=== PATIENT | female | born 1940 | race African-American/Black ===

== ENCOUNTER 2023-03-27 09:17 | Outpatient (REF) | payer OTHER, SELFPAY | END 2023-03-27 09:18 | disposition home or self-care (01) | LOC: HO.HOSX 09:17 | PROVIDERS: Visit Provider Orthopaedic Surgery | DX: Z13.89 Encounter for screening for other disorder (principal) ==

== ENCOUNTER 2023-04-03 09:54 | Outpatient (REF) | payer OTHER, SELFPAY ==
--- NOTE | ~2023-04-03 | XR_ITS ---
EXAMINATION: XR BILATERAL KNEES CLINICAL INFORMATION: Bilateral knee pain. COMPARISON: None available. TECHNIQUE: 3 views of the right knee. 3 views of the left knee. FINDINGS:
== END 2023-04-03 09:55 | disposition home or self-care (01) ==
LOC: HO.HOSX 09:54
PROVIDERS: Visit Provider Orthopaedic Surgery
DX: M25.562 Pain in left knee (principal); M25.561 Pain in right knee; M54.50 Low back pain, unspecified; M79.604 Pain in right leg; M79.605 Pain in left leg; Z96.651 Presence of right artificial knee joint
CPT/HCPCS: 73562; 99212

== ENCOUNTER 2023-04-03 12:16 | Outpatient (AMB) | payer OTHER, MEDICAID, SELFPAY ==
--- NOTE | 2023-04-03 12:26 | MHC.OFFVIS ---
Intake Intake Visit Reasons: [employer]- B/l Knee pain Intake Note: This is 82 year old female who has had a right total knee by Dr. Phelan in 2010. She reports intermittent discomfort in both of her knees. She denies any fevers or chills. She has taken tramadol in the past which gives her fairly good relief. Patient also reports progressively worsening low back pain which radiates down both of her legs, right greater than left. She has been to physical therapy in the past which gave her no relief of her back pain. The patient states that at times her right leg will give out because of the weakness. She has tried Tylenol and anti-inflammatory medicines which gave her minimal relief. Allergies No Known Allergies Allergy (Verified 04/03/23 12:30) Medication List - Last Reconciled 04/03/23 by Kenya Diaz, CEHTAN albuterol sulfate 90 mcg/actuation 1 inh inhalation QID amitriptyline 50 mg PO DAILY apixaban (Eliquis) 2.5 mg PO BID baclofen 10 mg PO DAILY ferrous sulfate 325 mg PO Q OTHER DAY furosemide 20 mg PO DAILY gabapentin 300 mg PO DAILY metoprolol tartrate 50 mg PO DAILY omeprazole 20 mg PO DAILY pravastatin 40 mg PO DAILY [facility] Surgical History (Updated 04/03/23 @ 13:15 by Kenya Diaz RN) History of total right knee replacement Physical Exam Const Other: Well-nourished well-developed very friendly female awake alert and oriented x3 in no acute distress Back/Spine/Pelvis Other: Low back examination shows right-sided paraspinal muscle tenderness, pain with range of motion, positive straight leg raise test on the right at 70 degrees, 4/5 strength with testing of her right hip flexors and knee extensors when compared to 5/5 strength on her left side Extrem Other: Right knee examination shows that the surgical incision is well healed, no erythema, full active extension and flexion to 120 degrees with minimal discomfort, her patella tracks well, no instability Left knee examination shows palpable crepitus with range of motion, pain with range of motion, no instability Results Reviewed Results Reviewed: X-rays of the patient's right knee show a total knee arthroplasty in good position with no signs of loosening, no acute bony abnormalities X-rays of the patient's left knee show moderate diffuse joint space narrowing, no acute bony abnormalities Assessment & Plan Assessment & Plan (1) Right knee pain: Code(s): M25.561 - Pain in right knee (2) Left knee pain: Code(s): M25.562 - Pain in left knee (3) Low back pain radiating to both legs: Code(s): M54.50 - Low back pain, unspecified; M79.604 - Pain in right leg; M79.605 - Pain in left leg Plan Ms. Reza presents with progressively worsening low back pain which radiates down both of her legs as well as associated right leg weakness possibly due to lumbar stenosis or a disc herniation. Thus, I will send the patient for an MRI of her lumbar spine for further evaluation. I will contact her by phone with the results once the MRI is completed. She will call me prior to that time should her symptoms worsen in any way. I did refill her prescription for tramadol. Feel free to call me at any time should questions regarding her orthopedic management arise. I spent 22 minutes in reviewing the patient's records and imaging studies, seeing the patient and documenting in the medical record. Orders: Orders MR lumbar spine wo con 04/03/23 M54.50 - Low back pain, unspecified, M79.604 - Pain in right leg, M79.605 - Pain in left leg Medications: New tramadol 50 mg PO Q8H PRN 60 tabs 0RF pain Coding Level of Care Code Est Pt Level 2 (90435) Diagnoses Right knee pain M25.561 Left knee pain M25.562 Low back pain radiating to both legs M54.50; M79.604; M79.605
== END 2023-04-03 13:18 | disposition home or self-care (01) ==
PROVIDERS: PCP Internal Medicine; Visit Provider Orthopaedic Surgery
DX: M25.561 Pain in right knee (principal); M25.562 Pain in left knee; M54.50 Low back pain, unspecified; M79.604 Pain in right leg; M79.605 Pain in left leg
CPT/HCPCS: 99213

== ENCOUNTER 2023-05-03 13:32 | Outpatient (AMB) | payer OTHER, SELFPAY ==
--- NOTE | 2023-05-03 13:34 | MHC.OFFVIS ---
Intake Vital Signs 05/03/23 13:38 Height 5 ft 9 in Weight 250 lb BMI 36.9 Intake Visit Reasons: ov- mri review Intake Note: Ani is a 82 year old female who reports for and MRI review of her lumbar spine. Patient reports progressively worsening low back pain which radiates down both of her legs, right greater than left. The patient states that she did undergo low back surgery by Dr. Darnell Meng in 2010. She got fairly good relief from that surgery initially. Over the last few years her symptoms have gotten worse. She has been to physical therapy in the past which gave her no relief of her back pain. The patient states that at times her right leg will give out because of the weakness. She has tried Tylenol and anti-inflammatory medicines which gave her minimal relief. Allergies No Known Allergies Allergy (Verified 05/03/23 13:37) [facility] Surgical History History of total right knee replacement Physical Exam Vital Signs: BMI result Body Mass Index 36.9 Const Other: Well-nourished well-developed very friendly female awake alert and oriented x3 in no acute distress Back/Spine/Pelvis Other: Low back examination shows pain with range of motion, bilateral paraspinal muscle tenderness, positive straight leg raise test on the left at 70 degrees Results Reviewed Results Reviewed: MRI report of the patient's lumbar spine shows diffuse moderate to severe stenosis, no acute bony abnormalities Assessment & Plan Assessment & Plan (1) Low back pain radiating to both legs: Code(s): M54.50 - Low back pain, unspecified; M79.604 - Pain in right leg; M79.605 - Pain in left leg Plan Ms. Reza presents with low back pain which radiates into both of her legs due to lumbar stenosis. Thus, I will refer her to the neurosurgery department here at [facility]. She will follow-up as instructed. She will contact me prior to that appointment should her symptoms worsen in any way. Feel free to call me at any time should questions regarding her orthopedic management arise. I spent 20 minutes in reviewing the patient's records and imaging studies, seeing the patient and documenting in the medical record. Orders: Referrals Neurosurgery Referral M54.50 - Low back pain, unspecified, M79.604 - Pain in right leg, M79.605 - Pain in left leg Medications: Refilled tramadol 50 mg PO Q8H PRN 60 tabs 0RF pain Coding Level of Care Code Est Pt Level 2 (19403) Diagnoses Low back pain radiating to both legs M54.50; M79.604; M79.605
[2023-05-03 13:38] VITALS: BMI 36.9
== END 2023-05-03 14:21 | disposition home or self-care (01) ==
PROVIDERS: PCP Internal Medicine; Visit Provider Orthopaedic Surgery
DX: M48.061 Spinal stenosis, lumbar region without neurogenic claudication (principal); M79.604 Pain in right leg; M79.605 Pain in left leg
CPT/HCPCS: 99213

== ENCOUNTER → 2023-05-03 13:32 | Outpatient (BNVA) | payer OTHER, SELFPAY | PROVIDERS: PCP Internal Medicine; Visit Provider Orthopaedic Surgery | DX: M48.061 Spinal stenosis, lumbar region without neurogenic claudication (principal) | CPT/HCPCS: 99212 ==

== ENCOUNTER 2023-05-18 12:33 | Outpatient (AMB) | payer OTHER, SELFPAY ==
--- NOTE | 2023-05-18 13:05 | A.SPINEOV_ITS ---
Intake Intake Visit Reasons: leg and back pain Intake Note: Ms. Reza is here today c/o low back and leg pain. MRI done @ [facility]/brought disc. 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 Phelan, Thank you for referring Ani to our office today. She is a pleasant 82-year-old female who comes in today with a chief complaint of low grade back pain and difficulty walking. She reports that she began having low back pain and difficulty walking roughly 50 years ago, and is unable to identify any specific inciting incident. She reports relief of symptoms with flexing forward and sitting, and states that walking exacerbates her symptoms. She states that she had a previous lumbar spine surgery by Dr. Meng at [facility] in 2010, which provided minimal relief. Radiology report states that this surgery was a right-sided L3-4 laminectomy. She reports she has tried several interventions over the years including going to physical therapy multiple times, completing a series of cortisone injections, and having other issues addressed such as a right-sided knee replacement. She states that if she needs to walk long distances she needs to stop and rest several times in order to continue. She states she is still able to complete her grocery shopping but needs to utilize the shopping cart to get around. She currently takes gabapentin & baclofen for symptom management. 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 Hypertension, hyperlip idemia, right knee replacement, asthma, osteoarthritis. Social hx: Patient does not smoke, reports no substance use. Medications: Amitriptyline, gabapentin, pravastatin, metoprolol, baclofen, omepr azole, albuterol, Eliquis, furosemide. Allergies: NKDA. Physical exam: The patient has 5/5 strength in her upper and lower extremities. She reports intermittent sensational deficits in her posterior thighs. The rest of her sensation is grossly intact. Her patellar reflexes are 1+ hypoactive. The rest of her reflexes are 2+ intact. (-) Johnson's, (-) clonus. Imaging review: MRI completed at [facility] shows diffuse spondylosis of the lumbar spine. There is evidence of a prior surgery which the MRI report states was a right-sided hemilaminectomy at L3-4. There is severe bilateral foraminal stenosis noted at L2-3, worse on the right, and moderate bilateral foraminal stenosis at L3-4. Impression: Ani is a pleasant 82-year-old female who comes in today with a chief complaint of low back pain accompanied by difficulty walking. She states that the worst symptom that she has at this time is her inability to walk. She needs to stop several times and sit if she needs to walk long distances (example: from her car into the office). Her history and physical are classic for lumbar stenosis with neurogenic claudication. Her imaging also supports this. We spent some time in the office today discussing the possibility of a lumbar decompression to address her neurogenic claudication. She seems agreeable to this. I informed her that I will need to review her case with Dr. Blanton and see if there is a surgical intervention that he is willing to offer her to resolve her symptoms. We discussed the possibility of addressing both the L2-3 and L3-4 levels. Thank you for allowing us to care for your patient. The total time spent with this visit with this patient was 45 minutes reviewing history, physical exam, MRI imaging review, and implementation of treatment plan or further diagnostic testing Wali Blanton MD,PhD [facility] Orders: Orders XR lumbar spine 4V min Today Coding Level of Care Code New Pt Level 4 (11968) Diagnoses Lumbar stenosis with neurogenic claudication M48.062
== END 2023-05-18 14:50 | disposition home or self-care (01) ==
PROVIDERS: PCP Internal Medicine; Referring Provider Orthopaedic Surgery; Visit Provider Physician Assistant
DX: M48.062 Spinal stenosis, lumbar region with neurogenic claudication (principal)
CPT/HCPCS: 99204

== ENCOUNTER 2023-05-18 12:33 | Outpatient (REF) | payer OTHER, SELFPAY ==
--- NOTE | ~2023-05-18 | XR_ITS ---
EXAMINATION: XR LUMBOSACRAL SPINE WITH OBLIQUES CLINICAL INFORMATION: Pain. COMPARISON: None available. TECHNIQUE: AP, both oblique, and lateral views of the lumbar spine. 4 views total. FINDINGS: The bones are diffusely demineralized. Degenerative changes on limited views of the lower thoracic spine. Rightward curvature of the lumbar spine. Moderate degenerative changes in the bilateral sacroiliac joints. Atherosclerotic aortoiliac calcific calcifications. Advanced degenerative changes in the [id number] lumbar spine. Advanced multilevel lumbar spondylosis with multilevel loss of disc space height. Minimal grade 1 retrolisthesis of L2 on L3. Minimal grade 1 anterolisthesis of L3 on L4. Moderate grade 1 anterolisthesis of L4 and L5. XR/XR lumbar spine 4V min IMPRESSION: Advanced multilevel lumbar spondylosis.
== END 2023-05-18 12:34 | disposition home or self-care (01) ==
LOC: HO.HOSX 12:33
PROVIDERS: PCP Internal Medicine; Visit Provider Physician Assistant
DX: M48.062 Spinal stenosis, lumbar region with neurogenic claudication (principal)
CPT/HCPCS: 72110; 99202

== ENCOUNTER 2024-11-10 08:22 | Outpatient (AMB) | payer OTHER, SELFPAY ==
--- NOTE | 2024-11-10 08:26 | MHC.OFFVIS ---
Vital Signs 11/10/24 08:33 Height 5 ft 9 in Weight 203 lb BMI 30.0 Intake Visit Reasons: OV f/u B/l Knee pain Intake Note: Ani is a 82 year old female who reports for and MRI review of her lumbar spine. Patient reports progressively worsening low back pain which radiates down both of her legs, right greater than left. The patient states that she did undergo low back surgery by Dr. Darnell Meng in 2010. She got fairly good relief from that surgery initially. Over the last few years her symptoms have gotten worse. She has been to physical therapy in the past which gave her no relief of her back pain. The patient states that at times her right leg will give out because of the weakness. She has tried Tylenol and anti-inflammatory medicines which gave her minimal relief. The patient states that she has been seen by a pain management group in [place] but has not gotten good relief from their treatments. Allergies No Known Allergies Allergy (Verified 11/10/24 08:32) Medication List - Last Reconciled 11/10/24 by Dell Phelan MD albuterol sulfate 90 mcg/actuation 1 inh inhalation QID amitriptyline 50 mg PO DAILY apixaban (Eliquis) 2.5 mg PO BID baclofen 10 mg PO DAILY ferrous sulfate 325 mg PO Q OTHER DAY furosemide 20 mg PO DAILY gabapentin 300 mg PO DAILY magnesium oxide 250 mg PO DAILY metoprolol tartrate 50 mg PO DAILY omeprazole 20 mg PO DAILY potassium chloride ER 20 mEq PO DAILY pravastatin 40 mg PO DAILY tramadol 50 mg PO Q8H PRN PFSH Surgical History History of total right knee replacement Physical Exam Vital Signs: BMI result Body Mass Index 30.0 Const Other: Well-nourished well-developed very friendly female awake alert and oriented x3 in no acute distress Back/Spine/Pelvis Other: Low back examination shows bilateral paraspinal muscle tenderness, pain with range of motion, positive straight leg raise test bilaterally at 70 degrees Extrem Other: Right knee examination shows that the surgical incision is well healed, no erythema, full active extension and flexion to 110 degrees, her patella tracks well Results Reviewed Results Reviewed: MRI of the patient's lumbar spine taken previously shows moderate to severe stenosis, no acute bony abnormalities X-rays of the patient's right knee taken previously show a total knee arthroplasty in good position with no signs of loosening, no acute bony abnormalities Assessment & Plan Assessment & Plan (1) Right knee pain: Code(s): M25.561 - Pain in right knee Category: Medical (2) Low back pain radiating to both legs: Code(s): M54.50 - Low back pain, unspecified; M79.604 - Pain in right leg; M79.605 - Pain in left leg Category: Medical Plan Ms. Reza presents with low back pain which radiates into both of her legs due to lumbar stenosis. She also has continued discomfort around her right total knee arthroplasty of unclear etiology. Thus, I will refer her to Dr. Castellanos in our pain management department for further evaluation and possible nerve stimulation procedure. The patient will contact me prior to that appointment should her symptoms worsen in any way. Feel free to call me at any time should questions regarding her orthopedic management arise. I spent 21 minutes in reviewing the patient's records and imaging studies, seeing the patient and documenting in the medical record. Orders: Referrals Pain Management Referral M25.561 - Pain in right knee, M54.50 - Low back pain, unspecified, M79.604 - Pain in right leg, M79.605 - Pain in left leg Coding Level of Care Code Est Pt Level 3 (47276) Complex EM visit Add On G2211 Diagnoses Right knee pain M25.561 Low back pain radiating to both legs M54.50; M79.604; M79.605
--- OUTSIDE RECORDS SUMMARY | 2024-11-10 08:40 | XMS_ITS | Clinical Summary ---
Author Organization [facility] Address [address] [address] Phone Care Team Providers Care Mold Capper Helper Name Role Phone David Holland MD Primary Care Provider Allergies Active Allergy Reactions Criticality Noted Date Comments Ciprofloxacin Hives Medications ascorbic acid, vitamin C, (VITAMIN C) 500 MG tablet Take 1,000 mg by mouth daily. Active magnesium 250 mg Tab Take 500 mg by mouth. Active pravastatin (PRAVACHOL) 40 MG tablet Take 40 mg by mouth daily. Active lisinopril (PRINIVIL,ZESTRIL ) 10 MG tablet Take 10 mg by mouth daily. Active evening primrose oil (EVENING PRIMROSE ORAL) Take by mouth. Active meclizine (ANTIVERT) 25 mg tablet meclizine 25 mg tablet TK 1 T PO Q 8 H Active amitriptyline (ELAVIL) 10 MG tablet amitriptyline 10 mg tablet TK 1 T PO QHS Active fluticasone propionate (FLONASE) 50 mcg/actuation nasal spray fluticasone propionate 50 mcg/actuation nasal spray,suspension SHAKE LQ AND U 2 SPRAYS IEN QD Active acetaminophen-cod eine (TYLENOL #3) 300-30 mg per tablet acetaminophen 300 mg-codeine 30 mg tablet TK 1 TO 2 TS PO Q 4 TO 6 H PRN P Active albuterol 90 mcg/actuation inhaler albuterol sulfate HFA 90 mcg/actuation aerosol inhaler Active apixaban (ELIQUIS) 5 mg tablet Eliquis 5 mg tablet Active budesonide (RHINOCORT AQUA) 32 mcg/actuation nasal spray budesonide 32 mcg/actuation nasal spray U 2 SPRAYS IEN ONCE D Active dexAMETHasone (DECADRON) 6 MG tablet dexamethasone 6 mg tablet Active dilTIAZem (DILACOR XR) 240 mg 24 hr capsule diltiazem CD 240 mg capsule,extended release 24 hr Active metoprolol tartrate (LOPRESSOR) 50 MG tablet Take 50 mg by mouth 2 (two) times a day. 09/05/19 Active multivitamins Chew Take by mouth daily. Active nystatin (MYCOSTATIN) 100,000 units/mL suspension nystatin 100,000 unit/mL oral suspension SHAKE LIQUID AND TAKE 5 ML BY MOUTH FOUR TIMES DAILY FOR 10 DAYS Active omeprazole (PRILOSEC) 20 MG capsule omeprazole 20 mg capsule,delayed release Active amitriptyline (ELAVIL) 50 MG tablet amitriptyline 50 mg tablet TAKE 1 TABLET BY MOUTH EVERY DAY AT BEDTIME Active baclofen (LIORESAL) 10 MG tablet Take 10 mg by mouth as needed. Active hydrocortisone 1 % ointmentIndicatio ns:Boil, breast Apply small amount to affected area bid as needed itching. 12/15/19 Active Additional Information Patient not taking.Reported on 01/25/2022 clotrimazole-beta methasone (LOTRISONE) creamIndications: Candidiasis of vulva and vagina Apply to affected area 2 times daily x 14 days 30 g 01/28/20 Active Additional Information Patient not taking.Reported on 01/25/2022 valACYclovir (VALTREX) 500 MG tabletIndications :Herpes simplex infection of other site of genitourinary tract Take 1 tablet (500 mg total) by mouth 2 (two) times a day. For 3days - outbreak 18 tablet 1 10/20/19 Active Additional Information Patient not taking.Reported on 01/25/2022 triamcinolone acetonide 0.025 % cream Apply topically daily as needed. For itch 30 g 01/26/20 22 Active Active Problems Problem Noted Date Diagnosed Date Urinary problem 10/23/2018 Overview (10/23/2018): Pain and discomfort with urination since cystocele and bladder suspension done in 2017. Assessment & Plan (10/23/2018 3:31 PM EDT): Pain and discomfort with urination since cystocele/bladder suspension done in 2017. Patient did need to have a subsequent procedure done at that time. Due to might change of practice location, I am not currently in receipt of these old records. For a time patient had significant urinary urgency and she subsequently did well with oxybutynin. She is currently off that medication and the symptoms are not problematic for her. She is very distraught over the constant discomfort and pain with actual urination. At one point uro-blueprint reproducer that performed her surgery had her on baclofen. Patient is not taking this medication anymore and is not having any recall if it helped her at any point. Patient often calls and feels these symptoms she experiences are due to UTI. Urine cultures have been negative. Culture is sent today. Herpes genitalis 02/25/2018 Urinary urgency 02/07/2018 Assessment & Plan (10/23/2018 3:27 PM EDT): . Patient states these symptoms have resolved as well as nocturia and she has no longer taking oxybutynin. States she is doing fine in regards to these symptoms off the medication. Assessment & Plan (02/07/2018 9:41 AM EST): Discussed that a lower dose of anticholinergic medication may still help urinary sx and minimize side effects. Will check with pharmacy on last dose - was likely 10mg oxybutynin. Plan for 5mg daily dosing. 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 The pain she experiences is not due to the urine touching the skin, rather, she feels it is due to the actual process of urination. Patient believes she still has refills for Valtrex for as needed outbreaks. Will call for refills as needed. Resolved Problems Problem Noted Date Diagnosed Date Resolved Date Boil, breast 12/14/2020 01/29/2021 Assessment & Plan (12/14/2020 2:41 PM EDT): Area of right UOQ breast appears to have very small healing boil. No significant skin changes noted. The small scattered erythematous areas in the outlined area appear to be healing. NT. Reassured patient of benign finding. Since this area is causing her some distress due to itching, I have suggested 1% hydrocortisone ointment to affected area twice daily as needed. Patient other parts of her body that get itchy. Follow-up as needed. Intertriginous candidiasis 12/11/2019 1 Assessment & Plan (12/11/2019 9:27 AM EDT): Plan for fluconazole 150 mg tablet now and repeat in 3 days. Apply Lotrisone cream to affected areas as a very thin application twice daily x7 to 14 days. If symptoms are improving and itching has resolved, discontinue Lotrisone and continue application of clotrimazole twice daily to complete 2-week course of treatment. Follow-up PRN. Patient contacted later in the day to confirm what medication had been previously prescribed. She did receive nystatin powder and an antifungal cream. Patient advised to discontinue these. Breast tenderness 10/23/2018 01/29/2021 Overview (10/23/2018): Has done well with oil of evening [place]. Vaginal odor 02/25/2018 10/23/2018 Immunizations Immunization Administration Dates Next Due INFLUENZA, SPLIT VIRUS, TRIVALENT W/ PRESERVATIV E IM 12/23/2013 Influenza High-Dose Trivalent Preservative Free IM 12/29/2014 Family History Medical History Relation Comments Hypertension Brother Relation Status Comments Brother Social History Tobacco Use Types Packs/Day Years Used Date Smoking Tobacco: Never Smokeless Tobacco: Never Alcohol Use Standard Drinks/Week Comments No 0 (1 standard drink = 0.6 oz pur e alcohol) Education Answer Date Recorded Are you interested in more education? Not on paolo e 07/28/2022 Are you concerned about learning? Not on file 07/28/2022 No 07/28/2022 No 07/28/2022 Digital Access Answer Date Recorded No 08/26/2022 No 08/26/2022 No 08/26/2022 Reliable internet access at home? Not on file 08/26/2022 Device with a working camera? Not on file Comments No Sex and Gender Information Value Date Recorded Sex Assigned at Not on file Legal Sex Female 2:01 PM EDT Gender Identity Not on file Sexual Orientation Not on file Last Filed Vital Signs Vital Sign Reading Time Taken Comments Blood Pressure 118/72 01/25/2022 11:12 AM EDT Pulse - - Temperature - - Respiratory Rate - - Oxygen Saturation - - Inhaled Oxygen Concentration - - Weight 115.7 kg (255 lb) 01/25/2022 11:12 AM EDT Height 170.2 cm (5' 7 ) 01/25/2022 11:12 AM EDT Body Mass Index 39.94 01/25/2022 11:12 AM EDT Plan of Treatment Upcoming Encounters Date Type Department Care Team (Late st Contact Info) Description 11/12/2024 8:20 AM EDT Office Visit [facility] [address] [place] [address] [place] [address] Mony Teresa MD [address] [place] [address], [address] [place] [address] [email or web address] Health Maintenance Due Date Last Done Comments Adult Td,Tdap Booster 1938 CREATININE LEVEL 1938 POTASSIUM LEVEL 1938 DEPRESSION SCREENING 1950 ZOSTER VACCINES (1 of 2) 1988 OSTEOPOROSIS SCREENING INITI AL (ONE-TIME) 07/15/2003 RSV VACCINE (1 - 1-dose 75+ series) 2013 PNEUMOCOCCAL VACCINES (50+ y ears) (2 of 2 - PCV) 01/11/2022 01/11/2021 COVID-19 VACCINE ( - 2023-2 5 season) 2023 HEPATITIS A VACCINES Aged Out No long er eligible based on patient's age to complete this topic HIB VACCINES Aged Out No longer eligi ble based on patient's age to complete this topic MENINGOCOCCAL VACCINES (ACWY) Aged Out No longer eligible based on patient's age to complete this topic MENINGOCOCCAL VACCINES (B) Aged Out N o longer eligible based on patient's age to complete this topic Medical Devices Not on file Insurance MEDICARE PART A & B [facility] MEDICARE REPLACEMENT MEDICARE PART A & B [facility] MEDICARE REPLACEMENT MEDICARE PART A & B [employer] [facility] RE[facility] MEDICARE PART A & B [address] [place], [place] [id number] MEDICARE REPLACEMENT MEDICARE PART A & B [facility] MEDICARE REPLACEMENT MEDICARE PART A & B [address] [place], [place] [id number] MEDICARE REPLACEMENT MEDICARE PART A & B [facility] MEDICARE REPLACEMENT MEDICARE PART A & B Member Subscriber Plan / Payer ( fective 1992-Present) Name:Ani Reza Member ID:[id number] Relation to Subscriber:Self Name:Ani Reza Subscriber ID:[id number] Payer ID:[id number] Group ID:Not on file Type:Medicare Address: [employer] [address] MEDICARE REPLACEMENT [place] [id number] MEDICARE PART A & B Member Subscriber Plan / Payer (Ef fective 1992-Present) Name:Ani Reza Member ID:[id number] Relation to Subscriber:Self Name:Ani Reza Subscriber ID:[id number] Payer ID:[id number] Group ID:Not on file Type:Medicare Address: [employer] [address] [place] [id number] [place] [address] MEDICARE REPLACEMENT Care Teams Mold Capper Helper Relationship Specialty Start Date End Date David Holland MD [address] [address] PCP - General Internal Medicine 02/01/18 Additional Source Comments The information contained in this document represents components of the legal health record. It is not the complete legal health record.[facility]
--- OUTSIDE RECORDS SUMMARY | 2024-11-10 08:40 | XMS_ITS | Encounter Summary ---
Author Organization [facility] Address [address] [address] Phone Care Team Providers Care Buyer Assistant Name Role Phone David Holland MD Primary Care Provider Encounter Details Date Type Department Care Team (Late Contact Info) Description 07/11/2024 Office Communication [facility] [address] [phone] Sommer Khan ARNP [address] [phone] Social History Tobacco Use Types Packs/Day Years Used Date Smoking Tobacco: Never Smokeless Tobacco: Never Alcohol Use Standard Drinks/Week Comments Never 0 (1 standard drink = 0.6 oz pur e alcohol) Comments Unknown Sex and Gender Information Value Date Recorded Sex Assigned at Not on file Legal Sex Female 9:57 AM EDT Gender Identity Not on file Sexual Orientation Not on file documented as of this encounter Plan of Treatment Upcoming Encounters Date Type Department Care Team (Late Contact Info) Description 02/18/2025 10:30 AM EST Office Visit [facility] [address] [phone] Sommer Khan ARNP [address] [phone] documented as of this encounter Visit Diagnoses Not on filedocumented in this encounter Care Teams Buyer Assistant Relationship Specialty Start Date End Date David Holland MD [address] PCP - General Internal Medicine 10/16/22 documented as of this encounter
--- OUTSIDE RECORDS SUMMARY | 2024-11-10 08:41 | XMS_ITS | Clinical Summary ---
Author Organization [facility] Address [address] [place] [address] Phone Care Team Providers Care Jig Maker Name Role Phone David Goldberg MD Primary Care Provider [phone] Allergies Active Allergy Reactions Criticality Noted Date Comments Ciprofloxacin Rash High 09/02/2021 Medications Eliquis 2.5 mg tablet Take 1 tablet (2.5 mg total) by mouth 2 (two) times a day. Active baclofen (LIORESAL) 10 mg tablet Take 1 tablet (10 mg total) by mouth 2 (two) times a day. Active donepeziL (ARICEPT) 5 mg tablet Take 1 tablet (5 mg total) by mouth at bedtime. at bedtime Active ferrous sulfate 325 mg (65 mg elemental iron) tablet Take 1 tablet (325 mg total) by mouth every other day. Active pravastatin (PRAVACHOL) 40 mg tablet Take 1 tablet (40 mg total) by mouth 1 (one) time each day. Active omeprazole OTC (PriLOSEC OTC) 20 mg EC tablet Take 2 tablets (40 mg total) by mouth 1 (one) time each day. Active albuterol HFA (PROAIR HFA ; PROVENTIL HFA ; VENTOLIN HFA) 90 mcg/actuation inhaler Inhale 2 puffs by mouth every 6 hours as needed. Active metoprolol tartrate (LOPRESSOR) 50 mg tablet Take 1.5 tablets (75 mg total) by mouth 2 (two) times a day. 5 Active furosemide (LASIX) 20 mg tablet Take 1 tablet (20 mg total) by mouth 1 (one) time each day if needed (leg swelling). 30 tablet 5 Active QUEtiapine (SEROquel) 25 mg tablet Take 0.5 tablets (12.5 mg total) by mouth 2 (two) times a day if needed (agitation). 20 tablet 5 Active Additional Information Patient not taking.Reported on 09/17/2024 amitriptyline (ELAVIL) 50 mg tablet Take 1 tablet (50 mg total) by mouth at bedtime. at bedtime Active cefpodoxime (VANTIN) 200 mg tablet Take 1 tablet (200 mg total) by mouth every 12 (twelve) hours. for 10 days 5 Active clotrimazole (LOTRIMIN) 1 % cream 1 application topically 2 times a day Active Jardiance 10 mg tablet Take 1 tablet (10 mg total) by mouth 1 (one) time each day. 5 Active fluticasone propionate (FLONASE) 50 mcg/actuation nasal spray Administer 1 spray into each nostril 1 (one) time each day. Active lisinopriL (PRINIVIL,ZESTRI L) 10 mg tablet Take 1 tablet (10 mg total) by mouth 1 (one) time each day. Active magnesium oxide (MAG-OX) 400 mg (241.3 elemental magnesium) tablet Take 1 tablet (400 mg total) by mouth 2 (two) times a day. 5 Active magnesium oxide 250 mg magnesium tablet Take 1 tablet (250 mg total) by mouth 1 (one) time each day. Active metoprolol succinate (TOPROL-XL) 50 mg 24 hr tablet Take 1 tablet (50 mg total) by mouth 1 (one) time each day. Active nystatin (MYCOSTATIN) cream Apply 1 Application topically 2 (two) times a day. Active omeprazole (PriLOSEC) [address] capsule Take 2 capsules (40 mg total) by mouth 1 (one) time each day. 5 Active Tobradex ophthalmic ointment APPLY A 0.5 INCH RIBBON TO LEFT EYE THREE TIMES DAILY FOR 7 DAYS 5 Active vancomycin (VANCOCIN) 250 mg capsule Take 1 capsule (250 mg total) by mouth. Active cholestyramine (QUESTRAN) 4 gram powderIndication s:Diarrhea, unspecified type Take 1 packet (4 g total) by mouth 1 (one) time each day. 30 packet 1 5 11/26/19 25 Active Active Problems Problem Noted Date Diagnosed Date Candidal vulvitis 09/12/2024 Lichen sclerosus 09/12/2024 Hypervolemia 03/27/2024 Vitamin D deficiency 02/20/2024 Class 2 obesity 02/28/2023 Disorder of both sacroiliac joints 02/28/2023 Female cystocele 02/28/2023 Candidiasis of vulva 02/28/2023 Anemia in chronic kidney disease 11/28/2022 Edema of both lower legs 11/28/2022 Essential (primary) hypertension 11/28/2022 Stage 3a chronic kidney disease (CMS/HCC V24, CM S/HCC V28) 11/28/2022 Degenerative arthritis of lumbar spine Neck pain 02/12/2021 Spasm 02/12/2021 Muscle spasm 02/12/2021 Chronic pain of left knee 10/20/2020 Primary osteoarthritis of left knee 10/20/2020 Urinary problem 10/23/2018 Overview (09/12/2024): Pain and discomfort with urination since cystocele and bladder suspension done in 2016. Disorder of urinary system 10/23/2018 Overview (09/12/2024): Pain and discomfort with urination since cystocele and bladder suspension done in 2016. Last Assessment & Plan: Pain and discomfort with urination since cystocele/bladder suspension done in 2016. Patient did need to have a subsequent [...] pain with actual urination. At one point uro-cook cold meat that performed her surgery had her on baclofen. Patient is not taking this medication anymore and is not having any recall if it helped her at any point. Patient often calls and feels these symptoms she experiences are due to UTI. Urine cultures have been negative. Culture is sent today. Genital herpes simplex 02/25/2018 Herpes genitalis 02/25/2018 Herpes simplex vulvovaginitis 02/07/2018 Urinary urgency 02/07/2018 Overview (09/12/2024): Last Assessment & Plan: . Patient states these symptoms have resolved as well as nocturia and she has no longer taking oxybutynin. States she is doing fine in regards to these symptoms off the medication. Resolved Problems Problem Noted Date Diagnosed Date Resolved Date Transient alteration of awareness 06/12/2024 06/12/2024 Acute encephalopathy 06/05/2024 025 Encounters Date Type Department Care Team Description 10/10/2024 10:00 AM EDT - 10/10/2024 11:59 PM EDT Hospital Encounter [facility] CT Scan [address] [place] [id number] Acute diarrhea Discharge Disposition: Home or Self Care 09/29/2024 Telephone Gastroenterology - [address] [phone] Jefferson Chang MA 09/17/2024 10:00 AM EDT Consult Gastroenterology - [address] [phone] Lloyd Chow PA C. difficile diarrhea (Primary Dx); Lower abdominal pain 09/04/2024 Telephone Gastroenterology - [address] [phone] Lloyd Chow PA from Last 3 Months Surgical History Surgery Date Site/Laterality Comments COLONOSCOPY 12/01/2018 - 12/30/2018 Fair prep, left-sided diverticulosis(prn) Dr. Renee ESOPHAGOGASTRODUODENOSCOPY 12/01/2018 - 12/30/[address] Zeroogian Social History Tobacco Use Types Packs/Day Years Used Date Smoking Tobacco: Former Cigarettes Smokeless Tobacco: Never Tobacco Cessation:Counseling Given: Not Answered Interpersonal Safety Answer Date Record ed Physical Abuse 06/06/2024 Verbal Abuse 06/06/2024 Comments Unknown Sex and Gender Information Value Date Recorded Sex Assigned at Not on file Legal Sex Female 10:27 PM EST Gender Identity Not on file Sexual Orientation Not on file Obstetrics History Last Filed Vital Signs Vital Sign Reading Time Taken Comments Blood Pressure 123/58 06/12/2024 7:52 AM EDT Pulse 86 06/12/2024 7:52 AM EDT Temperature 36.4 C (97.5 F) 06/12/2024 7:52 AM EDT Respiratory Rate 16 06/12/2024 7:52 AM EDT Oxygen Saturation 97% 06/12/2024 7:52 AM EDT Inhaled Oxygen Concentration - - Weight 95.8 kg (211 lb 3.2 oz) 09/17/2024 9:58 A M EDT Height 175.3 cm (5' 9 ) 09/17/2024 9:58 AM EDT Body Mass Index 31.19 09/17/2024 9:58 AM EDT Plan of Treatment Health Maintenance Due Date Last Done Comments COVID-19 Vaccine (#1) 07/15/1945 DTaP,Tdap,and Td Vaccines (1 - Tdap) 1957 Zoster Vaccines (1 of 2) 1957 Pneumococcal Vaccine: 50+ Years (1 of 1 - PCV) 1988 RSV Immunization Adult Patients (1 - 1-dose 75+ series) 2013 Cholesterol Screening (Lipid Panel) 03/12/2022 Medicare Annual Wellness Visit 03/12/2022 Osteoporosis Screening (Bone Density Screening) 03/12/2022 Social Influencers of Health Screening 03/12/2022 Depression Screening 04/02/2024 Influenza Vaccine (#1) 2024 12/29/2014, 2013 Falls Risk Assessment 06/12/2025 06/12/2024 Hypertension/CHF/CAD Annual BMP Blood Test 07/29/2025 07/29/2024, 06/08/2024, 06/07/2024, Additional history exists HIB Vaccines Aged Out No longer eligi ble based on patient's age to complete this topic HPV Vaccines Aged Out No longer eligi ble based on patient's age to complete this topic Hepatitis A Vaccines Aged Out No long er eligible based on patient's age to complete this topic Hepatitis B Vaccines Aged Out No long er eligible based on patient's age to complete this topic IPV Vaccines Aged Out No longer eligi ble based on patient's age to complete this topic MMR Vaccines Aged Out No longer eligi ble based on patient's age to complete this topic Meningococcal ACWY Vaccine Aged Out N o longer eligible based on patient's age to complete this topic Meningococcal B Vaccine Aged Out No l onger eligible based on patient's age to complete this topic RSV Immunization Patients Under 20 months Aged Out No longer eligible based on patient's age to complete this topic Varicella Vaccines Aged Out No longer eligible based on patient's age to complete this topic Procedures Procedure Name Priority Date/Time Associated Diagnosis Comments CT ABDOMEN PELVIS W CONTRAST Routine 10/10/2024 10:41 AM EDT Acute diarrhea CLOSTRIDIUM DIFFICILE TOXIN Routine 09/26/2024 9:38 AM EDT C. difficile diarrhea EXTERNAL COLONOSCOPY REPORT Routine 09/19/2024 8:55 AM EDT BASIC METABOLIC PANEL Routine 06/08/2024 6:47 AM EDT from Last 3 Months or Most Recently Relevant to Health Maintenance Results * CT Abdomen Pelvis w Contrast (10/10/2024 10:41 AM EDT) Anatomical Region Laterality Modality Body Computed Tomogra phy 10/10/2024 1:23 PM EDT Impressions 10/10/2024 1:28 PM EDT No obstruction, free air, free fluid or focal inflammatory changes. Diverticulosis without acute diverticulitis. -------- FINAL REPORT -------- Dictated By: Ursula Mccrary Dictated Date: 10/10/2024 13:23 ET Assigned Physician: Ursula Mccrary Reviewed and Electronically Signed By: Ursula Mccrary Signed Date: 10/10/2024 13:28 ET Workstation ID: [id number] Transcribed By: Self Edit Transcribed Date: 10/10/2024 13:23 ET Narrative 10/10/2024 1:28 PM EDT INDICATION: Diarrhea TECHNIQUE: CT scan of the abdomen and pelvis obtained with a total of 90 cc of Isovue-370 administered intravenously without incident. Oral contrast administered. Scanner: GE revolution frontier 128 slice VCT Dose reduction technique: ASIR (Adaptive statistical iterative reconstruction) and/or AEC (automated exposure control) Dose: total exam DLP 1497 mGY per cm COMPARISON: Compared to multiple prior studies most recent from June 06, 2024 FINDINGS: Trace right effusion. Minimal bibasilar atelectasis. Heart enlarged with trace pericardial effusion. Osteopenia, degenerative and scoliotic changes. Liver, spleen, pancreas, gallbladder, adrenal glands and kidneys are within normal limits. Stomach and small bowel are within normal limits. Terminal ileum demonstrate mild diverticulosis. A normal appendix not visualized. No inflammatory changes in the right lower quadrant. Both right and left-sided colonic diverticulosis. No acute diverticulitis. No free air or free fluid. Contrast is noted throughout the colon all the way to the rectum. Urinary bladder normal. Status post hysterectomy. No adnexal masses. Mild tortuosity and atherosclerotic disease along the abdominal aorta and iliac vessels. Procedure Note Ursula Mccrary MD - 10/10/2024 INDICATION: Diarrhea TECHNIQUE: CT scan of the abdomen and pelvis obtained with a total of 90cc of Isovue-370 administered intravenously without incident. Oralcontrast administered. Scanner: Optinuity revolution frontier 128 slice VCT Dose reduction technique: ASIR (Adaptive statistical iterativereconstruction) and/or AEC (automated exposure control) Dose: total exam DLP 1497 mGY per cm COMPARISON: Compared to multiple prior studies most recent from May FINDINGS: Trace right effusion. Minimal bibasilar atelectasis. Heart enlarged withtrace pericardial effusion. Osteopenia, degenerative and scoliotic changes. Liver, spleen, pancreas, gallbladder, adrenal glands and kidneys arewithin normal limits. Stomach and small bowel are within normal limits. Terminal ileumdemonstrate mild diverticulosis. A normal appendix not visualized. Noinflammatory changes in the right lower quadrant. Both right andleft-sided colonic diverticulosis. No acute diverticulitis. No free air orfree fluid. Contrast is noted throughout the colon all the way to therectum. Urinary bladder normal. Status post hysterectomy. No adnexal masses. Mild tortuosity and atherosclerotic disease along the abdominal aorta andiliac vessels. IMPRESSION: No obstruction, free air, free fluid or focal inflammatory changes.Diverticulosis without acute diverticulitis. -------- FINAL REPORT -------- Dictated By: Ursula Mccrary Dictated Date: 10/10/2024 13:23 ET Assigned Physician: Ursula Mccrary Reviewed and Electronically Signed By: Ursula Mccrary Signed Date: 10/10/2024 13:28 ET Workstation ID: [id number] Transcribed By: Self Edit Transcribed Date: 10/10/2024 13:23 ET David Goldberg MD IMG CT PROCEDURES Final Result * Clostridium difficile toxin (09/26/2024 9:38 AM EDT) Clostridium difficile GDH Antigen Negative Negative 09/26/2024 12:02 PM EDT [facility] C difficile Toxins A+B, EIA Negative Negative 09/26/2024 12:02 PM EDT [facility] Comment:NEGATIVE FOR TOXIN P RODUCING CLOSTRIDIOIDES DIFFICILE, NO ADDITIONAL TESTING IS NECESSARY. Stool Rectum structure / Unknown Non-blood Collection / Unknown 09/26/2024 9:38 AM EDT 09/26/2024 11:09 AM EDT Lloyd RAMIRES LAB MICROBIOLOGY - GENERAL O RDERABLES Final Result [facility] [address] [place] [address], * External Colonoscopy Report (09/19/2024 8:55 AM EDT) Anatomical Region Laterality Modality Endoscopy Historical Provider GI~PROCEDURE ORDERABLES F inal Result * (ABNORMAL) Basic metabolic panel (06/08/2024 6:47 AM EDT) Sodium 141 133 - 145 mmol/L LAB CHEMISTRY METHOD 06/08/2024 8:11 AM [facility] Potassium 3.9 3.5 - 5.5 mmol/L LAB CHEMISTRY METHOD 06/08/2024 8:11 AM [facility] Comment:Hemolysis present Chloride 106 96 - 110 mmol/L LAB CHEMISTRY METHOD 06/08/2024 8:11 AM [facility] CO2 25 21 - 32 mmol/L LAB CHEMISTRY METHOD 06/08/2024 8:11 AM [facility] Anion Gap 10 3 - 11 LAB CHEMISTRY METHOD 06/08/2024 8:11 AM [facility] Glucose 103(H) 70 - 100 mg/dL LAB CHEMISTRY METHOD 06/08/2024 8:11 AM [facility] BUN 10 5 - 25 mg/dL LAB CHEMISTRY METHOD 06/08/2024 8:11 AM [facility] Creatinine 0.88 0.50 - 1.10 mg/dL LAB CHEMISTRY METHOD 06/08/2024 8:11 AM [facility] eGFR 64 >=60 mL/min/1. 73m2 LAB CHEMISTRY METHOD 06/08/2024 8:11 AM [facility] Comment:Calculation based on the Chronic Kidney Disease Epidemiology Collaboration (CKD-EPI) equation refit without adjustment for race. BUN/Creatinine Ratio 11.4 LAB CHEMISTRY METHOD 06/08/2024 8:11 AM [facility] Calcium 9.0 8.5 - 10.5 mg/dL LAB CHEMISTRY METHOD 06/08/2024 8:11 AM [facility] Blood Venous blood specimen / Unknown Venipuncture / Unknown 06/08/2024 6:47 AM EDT 06/08/2024 7:32 AM EDT [facility] [place] [facility] BLOOD ORDERABLES Final R esult [facility] [address] [place] [address], from Last 3 Months or Most Recently Relevant to Health Maintenance Insurance [facility] MEDICARE Member Subscriber Plan / Payer (Ef fective 2021-Present) Name:Joshua Rezay Relation to Subscriber:Self Name:Ani Reza Payer ID:[id number] Group ID:[id number] Type:Not on file Address: [place] [address] [id number] Advance Directives Documents on File Type Date Recorded Patient Telephonic Rn Expl anation Advance Directives and Living Will 06/10/2024 10:53 AM Ailin Leal [facility] Proxy * Full Code - Default (Latest Code Status on File) Date Activated Date Inactivated Comments 06/05/2024 6:41 PM 06/12/2024 12:26 PM This is orde r is used when code status has not been discussed with the patient, or code status is otherwise unknown/unconfirmed To update the patient's code status, place a code status order. Do not modify or discontinue any currently active code status orders. Healthcare Agents on File Name Relationship [facility] Ailin Harmeet Daughter Health Care Agent Marleny Serra Relative First Alternate Health C are Agent Care Teams Jig Maker Relationship Specialty Start Date End Date David Goldberg MD [address] [place] [address] PCP - General Internal Medicine 09/30/21
--- OUTSIDE RECORDS SUMMARY | 2024-11-10 08:41 | XMS_ITS | Clinical Summary ---
Author Organization [facility] Address [address] [place] [address] Care Team Providers Care Plater Hot Dip Name Role Phone Unavailable Primary Care Provider Unavailabl e Source Comments PLEASE NOTE, if this patient is a minor, it may be UNLAWFUL to discuss sensitive information that is contained in these records (such as FAMILY PLANNING, MENTAL HEALTH or SUBSTANCE ABUSE) with the minor patient's parent or other person without the patient's specific authorization.[facility] Encounters Date Type Department Care Team Description 11/03/2024 11:00 AM EDT Office Visit [facility] [id number] [place] [address] Lisha Rivas from Last 3 Months Social History Tobacco Use Types Packs/Day Years Used Date Smoking Tobacco: Never Assessed Comments Unknown Sex and Gender Information Value Date Recorded Sex Assigned at Not on file Legal Sex Female 6:20 AM PDT Gender Identity Not on file Sexual Orientation Not on file Plan of Treatment Health Maintenance Due Date Last Done Comments Tobacco Screening 1938 Advanced Care Planning 1940 Hypertension Screening (#1) 1956 Medicare Annual Wellness Visit 1956 Imm-DTaP/Tdap/Td (1 - Tdap) 1957 Imm-Pneumococcal 50+ (1 of 1 - PCV) 1988 Imm-Zoster, Recombinant (1 of 2) 1988 Bone Density Screening 07/15/2003 Falls Prevention 07/15/2003 Imm-RSV (adult) (1 - 1-dose 75+ series) 2013 [id number] ( - 2023- season) 2023 Alcohol and Drug Screen 04/02/2024 Depression Annual Screen 04/02/2024 Imm-Influenza (#1) 2024 Dental Examination 11/05/2025 11/03/2024 Dental FMX/Pano 11/05/2029 11/03/2024 Procedures Procedure Name Priority Date/Time Associated Diagnosis Comments DENTAL CASE MANAGEMENT - MOTIVATIONAL INTV Routine 11/03/2024 11:00 AM EDT Encounter for dental examination Ill-fitting dentures PANORAMIC RADIOGRAPHIC IMAGE Routine 11/03/2024 11:00 AM EDT Encounter for dental examination Ill-fitting dentures COMP ORAL EVALUATION - NEW/ESTABLISHED PATIENT Routine 11/03/2024 11:00 AM EDT Encounter for dental examination Ill-fitting dentures CARIES RISK ASSESSMENT & DOC FINDING HIGH RISK Routine 11/03/2024 11:00 AM EDT Encounter for dental examination Ill-fitting dentures ORAL CANCER SCREENING Routine 11/03/2024 11:00 AM EDT Encounter for dental examination Ill-fitting dentures Max COMPLETE DENTURE - MAXILLARY Routine 11/03/2024 12:00 AM EDT from Last 3 Months Insurance [facility]
== END 2024-11-10 08:40 | disposition home or self-care (01) ==
LOC: HO.HOS 08:23
PROVIDERS: PCP Internal Medicine; Visit Provider Orthopaedic Surgery
DX: M25.561 Pain in right knee (principal); M54.50 Low back pain, unspecified; M79.604 Pain in right leg; M79.605 Pain in left leg
CPT/HCPCS: 99213; G2211

== ENCOUNTER → 2024-11-10 08:22 | Outpatient (BNVA) | payer OTHER, SELFPAY | PROVIDERS: PCP Internal Medicine; Visit Provider Orthopaedic Surgery | DX: M48.061 Spinal stenosis, lumbar region without neurogenic claudication (principal); M25.561 Pain in right knee; M54.50 Low back pain, unspecified; M79.604 Pain in right leg; M79.605 Pain in left leg | CPT/HCPCS: 99212 ==

== ENCOUNTER 2024-11-28 09:44 | Outpatient (AMB) | payer OTHER, SELFPAY ==
--- NOTE | 2024-11-28 10:07 | MHC.OFFVIS ---
Vital Signs 11/28/24 10:08 Height 5 ft 9 in Weight 203 lb BMI 30.0 BP 133/63 Blood Pressure Location Lt brachial Position Sitting Respiration 16 Pulse 94 Pulse Source Pulse Oximeter Pulse Oximetry (%) 98 Oxygen Delivery Method Room Air Intake Visit Reasons: Low back pain, unspecified Solar Sales Associate Required: No Accompanied by: Daughter Allergies No Known Allergies Allergy (Verified 11/28/24 10:09) Medication List - Last Reconciled 11/28/24 by Nela Carlos LPN albuterol sulfate 90 mcg/actuation 1 inh inhalation QID apixaban (Eliquis) 2.5 mg PO BID baclofen 10 mg PO DAILY ferrous sulfate 325 mg PO Q OTHER DAY furosemide 20 mg PO DAILY magnesium oxide 250 mg PO DAILY metoprolol tartrate 50 mg PO DAILY omeprazole 20 mg PO DAILY pravastatin 40 mg PO DAILY HPI HPI Low back pain, unspecified: Details: History of Present Illness The patient is an 84-year-old female presenting with chronic pain management concerns. She experiences hip, thigh, knee, and leg pain secondary to osteoarthritis, with the pain described as aching and burning, rated at 10/10 intensity, and exacerbated by movement. The pain is constant, occurring both day and night. The patient also reports low back pain, described as an aching sensation with a severity of 10/10. 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 Despite previous interventions, including cortisone injections and physical therapy, her symptoms persist. The patient had a knee replacement in 2010 and continues to experience postarthroplasty knee pain, particularly in the right knee, which feels bent, stings, and moody. She has tried various interventions, including injections and physical therapy, without significant relief. Pain Description - Onset: Chronic, constant day and night - Quality: Aching, burning, pins and needles sensation - Location: Hip, thigh, knee, leg, and low back - Radiation: Radiates down the right leg - Exacerbating factors: Movement - Interference: Affects sleep, causes cramping at night Physical Exam - Appears afebrile. - Alert and oriented. - Mood and affect appropriate. - Follows and participates in conversation appropriately. - Respiratory effort is unlabored. - Able to transition from sit to stand unassisted. 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 - Analgesia: Currently taking baclofen 10 mg daily, pain intensity remains at 10/10. - Adverse Effects: No specific adverse effects from medications discussed. - Activities of Daily Living: Pain interferes with sleep and daily activities. - Aberrant Drug Related Behaviors: No aberrant behaviors reported. [facility] Surgical History History of total right knee replacement Physical Exam Vital Signs: Last Vital Signs Pulse 94 11/28/24 10:08 Resp 16 11/28/24 10:08 BP 133/63 11/28/24 10:08 Pulse Ox 98 11/28/24 10:08 Oxygen Delivery Method Room Air 11/28/24 10:08 BMI result Body Mass Index 30.0 Assessment & Plan Assessment & Plan (1) Low back pain radiating to both legs: Code(s): M54.50 - Low back pain, unspecified; M79.604 - Pain in right leg; M79.605 - Pain in left leg Category: Medical (2) Left knee pain: Code(s): M25.562 - Pain in left knee Category: Medical Plan Plan Patient was informed and verbally consented to the use of an ambient scribe for clinic note documentation during this visit. 1. Osteoarthritis - Continue current pain management strategies, including physical therapy and medication. 2. Low Back Pain - Consider lumbar spinal cord stimulation as a potential treatment option. - Patient provided with educational materials to consider this option. 3. Postlaminectomy Syndrome - Discussed lumbar spinal cord stimulation as a potential treatment option. - Patient not interested in implantable therapies at this time. 4. Postarthroplasty Knee Pain - Discussed temporary nerve stimulation of the saphenous nerve as a strategy for pain management. - Provided with brochures to consider this option. 5. Foraminal Stenosis - Continue monitoring symptoms and consider further interventions if necessary. Discussion Notes I discussed with the patient the potential treatment options for her chronic pain, including lumbar spinal cord stimulation and temporary nerve stimulation for her knee pain. I provided brochures for her to review and consider these options. The patient expressed reluctance towards implantable therapies at this time, but I encouraged her to think about it and return if she decides to proceed. Patient Instructions - Review the brochures provided on spinal cord stimulation and nerve stimulation options. - Consider the treatment options and return if you decide to proceed with any of them. - Continue current pain management strategies, including physical therapy and medication. Coding Level of Care Code New Pt Level 4 (47797) Diagnoses Low back pain radiating to both legs M54.50; M79.604; M79.605 Left knee pain M25.562
[2024-11-28 10:08] VITALS: BP 133/63; PULSE 94; RESP 16; O2SAT 98
--- OUTSIDE RECORDS SUMMARY | 2024-11-28 10:28 | XMS_ITS | Clinical Summary ---
Author Organization [facility] Address [address] [place] [phone] Phone Care Team Providers Care Manager Route Name Role Phone David Holland MD Primary Care Provider [phone] Allergies Active Allergy Reactions Criticality Noted Date Comments Ciprofloxacin Hives,Other (see comments) 2022 Medications albuterol HFA (PROVENTIL HFA;VENTOLIN HFA) 108 (90 Base) MCG/ACT inhaler Inhale 2 puffs every 6 (six) hours if needed for wheezing Active metoprolol tartrate (LOPRESSOR) 50 MG tablet Take 50 mg by mouth in the morning and 50 mg in the evening. Active pravastatin (PRAVACHOL) 40 MG tablet Take 40 mg by mouth 1 (one) time each day Active furosemide (LASIX) 20 MG tablet Take 20 mg by mouth 1 (one) time each day 3 Active Eliquis 2.5 MG tablet Take 2.5 mg by mouth in the morning and 2.5 mg in the evening. 3 Active baclofen (LIORESAL) 10 MG tablet Take 10 mg by mouth in the morning and 10 mg at noon and 10 mg in the evening. 3 Active Acetaminophen Extra Strength 500 MG tablet TAKE 2 TABLETS BY MOUTH EVERY 8 HOURS 3 Active b complex vitamins capsule Take 1 capsule by mouth 1 (one) time each day Active Multiple Vitamin (multivitamin) tablet Take 1 tablet by mouth 1 (one) time each day Active Cyanocobalamin (VITAMIN B 12 PO) Take by mouth Active ferrous sulfate 325 (65 Fe) MG tablet Take 1 tablet (325 mg total) by mouth every other day 45 tablet 3 4 Active omeprazole (PriLOSEC) [address] capsule Take 40 mg by mouth 1 (one) time each day 5 Active donepezil (ARICEPT) 5 MG tablet Take 5 mg by mouth every night Active Magnesium Oxide -Mg Supplement 250 MG tabletIndicatio ns:Hypomagnesem ia Take 250 mg by mouth in the morning and 250 mg in the evening. 90 tablet 1 5 05/23/19 26 Active Magnesium 250 MG capsuleIndicati ons:Hypomagnese cuong Take 1 capsule by mouth in the morning and 1 capsule in the evening. 60 capsule 2 5 11/18/19 25 Magnesium Oxide -Mg Supplement 250 MG tablet TAKE 1 TABLET BY MOUTH EVERY MORNING AND 1 TABLET BY MOUTH EVERY EVENING 11/25/19 25 Discontinue d(Reorder (does not appear on AVS)) Active Problems Problem Noted Date Diagnosed Date Vitamin D deficiency, not otherwise specified Bilateral arthropathy of sacroiliac joints 02/2802/28/2023 Candidiasis of vulva 02/28/2023 02/28/2023 Cystocele 02/28/2023 02/28/2023 Obese class II 02/28/2023 02/28/2023 Bilateral lower leg edema 11/28/2022 Essential (primary) hypertension 11/28/2022 Anemia in chronic kidney disease 11/28/2022 Stage 3a chronic kidney disease 11/28/2022 Neck pain 02/12/2021 02/28/2023 Spasm 02/12/2021 02/28/2023 Pain of knee region 10/20/2020 02/28/2023 Primary osteoarthritis of left knee 10/20/2020 02/28/2023 Disorder of urinary system 10/23/201802/28 Overview (02/28/2023): Pain and discomfort with urination since cystocele [...] pain with actual urination. At one point uro-automobile leasing supervisor that performed her surgery had her on baclofen. Patient is not taking this medication anymore and is not having any recall if it helped her at any point. Patient often calls and feels these symptoms she experiences are due to UTI. Urine cultures have been negative. Culture is sent today. Genital herpes simplex 02/25/2018 Urgent desire to urinate 02/07/2018 023 Overview (02/28/2023): Last Assessment & Plan: . Patient states these symptoms have resolved as well as nocturia and she has no longer taking oxybutynin. States she is doing fine in regards to these symptoms off the medication. Encounters Date Type Department Care Team Description 11/24/2024 Orders Only [facility] [address] [phone] Sommer Khan ARNP Hypomagnesemia (Primary Dx) 11/24/2024 Orders Only [facility] [address] [phone] Sommer Khan ARNP 11/24/2024 Refill [facility] [address] [address] Stacie Stafford 11/24/2024 Office Communication [facility] [address] [address] Criss Orellana 11/21/2024 Refill [facility] [address] [address] Barbara Mc 09/02/2024 Office Communication [facility] [place] [address] [place] [phone] Bushra Rosa from Last 3 Months Immunizations Immunization Administration Dates Next Due Influenza Split High Dose Preservative Free IM 0 12/29/2014 Influenza, Unspecified 12/23/2013 Family History Medical History Relation Comments Stroke Father Relation Status Comments Father Social History Tobacco Use Types Packs/Day Years Used Date Smoking Tobacco: Never Smokeless Tobacco: Never Tobacco Cessation:Counseling Given: No Alcohol Use Standard Drinks/Week Comments Never 0 (1 standard drink = 0.6 oz pur e alcohol) Comments Unknown Sex and Gender Information Value Date Recorded Sex Assigned at Not on file Legal Sex Female 9:57 AM EDT Gender Identity Not on file Sexual Orientation Not on file Last Filed Vital Signs Vital Sign Reading Time Taken Comments Blood Pressure 124/58 08/19/2024 10:52 AM EDT Pulse 60 08/19/2024 10:52 AM EDT Temperature - - Respiratory Rate - - Oxygen Saturation 96% 08/19/2024 10:52 AM EDT Inhaled Oxygen Concentration - - Weight 98.4 kg (217 lb) 08/19/2024 10:52 AM EDT Height - - Body Mass Index - - Plan of Treatment Upcoming Encounters Date Type Department Care Team (Late st Contact Info) Description 02/18/2025 10:30 AM EST Office Visit [facility] [address] [phone] Sommer Khan ARNP [address] [place] [phone] Health Maintenance Due Date Last Done Comments Pneumococcal Vaccine: 50+ Years (1 of 2 - PCV) 1959 Influenza Vaccine (#1) 2024 5, 12/23/2013 Hepatitis B Vaccine Aged Out No longe r eligible based on patient's age to complete this topic Insurance [facility] ([id number]) [facility] ([id number]) Care Teams Manager Route Relationship Specialty Start Date End Date David Holland MD [address] PCP - General Internal Medicine 10/16/22
--- OUTSIDE RECORDS SUMMARY | 2024-11-28 10:28 | XMS_ITS | Clinical Summary ---
Author Organization [facility] Address [address] [place] [address] Phone Care Team Providers Care Clock Assembler Name Role Phone David Goldberg MD Primary Care Provider [phone] Allergies Active Allergy Reactions Criticality Noted Date [...] 1 capsule (250 mg total) by mouth. 5 Active cholestyramine (QUESTRAN) 4 gram powderIndication s:Diarrhea, unspecified type Take 1 packet (4 g total) by mouth 1 (one) time each day. 30 packet 1 5 Active Active Problems Problem Noted Date Diagnosed [...] V28) 11/28/2022 Degenerative arthritis of lumbar spine 3 Neck pain 02/12/2021 Spasm 02/12/2021 Muscle spasm [...] pain with actual urination. At one point uro-hvac technician residential that performed her surgery had her on [...] - 10/10/2024 11:59 PM EDT Hospital Encounter [facility] CT Scan [address] [place] [address] Acute diarrhea Discharge Disposition: Home or Self Care 09/29/2024 Telephone Gastroenterology - [address] [phone] Jefferson Chang [place] 09/17/2024 10:00 AM EDT Consult Gastroenterology - [address] [phone] Lloyd Chow PA C. difficile diarrhea (Primary Dx); Lower abdominal pain 09/04/2024 Telephone Gastroenterology - [address] [address] Lloyd Chow PA from Last 3 Months Surgical History Surgery Date Site/Laterality Comments COLONOSCOPY 12/01/2018 - 12/30/2018 Fair prep, left-sided diverticulosis(prn) Dr. Renee ESOPHAGOGASTRODUODENOSCOPY 12/01/2018 - 12/30/[address] Renee Social History Tobacco Use Types Packs/Day Years [...] Signed Date: 10/10/2024 13:28 ET Workstation ID: [id number] Transcribed By: Self Edit Transcribed Date: 10/10/2024 [...] administered intravenously without incident. Oralcontrast administered. Scanner: [employer] revolution frontier 128 slice VCT Dose reduction [...] Signed Date: 10/10/2024 13:28 ET Workstation ID: [id number] Transcribed By: Self Edit Transcribed Date: 10/10/2024 13:23 ET David Goldberg MD IMG CT PROCEDURES Final Result * Clostridium difficile toxin (09/26/2024 9:38 AM EDT) Pathologist [facility] Clostridium difficile GDH Antigen Negative Negative 09/26/2024 12:02 PM EDT [facility] C difficile Toxins A+B, EIA Negative Negative 09/26/2024 12:02 PM EDT [facility] Comment:NEGATIVE FOR TOXIN P RODUCING CLOSTRIDIOIDES DIFFICILE, NO ADDITIONAL TESTING IS NECESSARY. Stool Rectum structure / Unknown Non-blood Collection / Unknown 09/26/2024 9:38 AM EDT 09/26/2024 11:09 AM EDT Lloyd RAMIRES LAB MICROBIOLOGY - GENERAL O RDERABLES Final Result [facility] [address] [place] [address], * External Colonoscopy Report (09/19/2024 8:55 AM EDT) Anatomical Region Laterality Modality Endoscopy Historical Provider GI~PROCEDURE ORDERABLES F inal Result * (ABNORMAL) Basic metabolic panel (06/08/2024 6:47 AM EDT) Sodium 141 133 - 145 mmol/L LAB CHEMISTRY METHOD 06/08/2024 8:11 AM [facility] Potassium 3.9 3.5 - 5.5 mmol/L LAB CHEMISTRY METHOD 06/08/2024 8:11 AM [facility] Comment:Hemolysis present Chloride 106 96 - 110 mmol/L LAB CHEMISTRY METHOD 06/08/2024 8:11 AM [facility] CO2 25 21 - 32 mmol/L LAB CHEMISTRY METHOD 06/08/2024 8:11 AM [facility] Anion Gap 10 3 - 11 LAB CHEMISTRY METHOD 06/08/2024 8:11 AM [facility] Glucose 103(H) 70 - 100 mg/dL LAB CHEMISTRY METHOD 06/08/2024 8:11 AM [facility] BUN 10 5 - 25 mg/dL LAB CHEMISTRY METHOD 06/08/2024 8:11 AM [facility] Creatinine 0.88 0.50 - 1.10 mg/dL LAB CHEMISTRY METHOD 06/08/2024 8:11 AM [facility] eGFR 64 >=60 mL/min/1. 73m2 LAB CHEMISTRY METHOD 06/08/2024 8:11 AM [facility] Comment:Calculation based on the Chronic Kidney Disease Epidemiology Collaboration (CKD-EPI) equation refit without adjustment for race. BUN/Creatinine Ratio 11.4 LAB CHEMISTRY METHOD 06/08/2024 8:11 AM [facility] Calcium 9.0 8.5 - 10.5 mg/dL LAB CHEMISTRY METHOD 06/08/2024 8:11 AM [facility] Blood Venous blood specimen / Unknown Venipuncture / Unknown 06/08/2024 6:47 AM EDT 06/08/2024 7:32 AM EDT us Leydi Malik MD LAB BLOOD ORDERABLES Final R esult [facility] [address] [place] [address], from Last 3 Months or Most Recently Relevant to Health Maintenance Insurance [facility] MEDICARE Member Subscriber Plan / Payer (Ef fective 2021-Present) Name:Ani Reza Relation to Subscriber:Self Name:nAi Reza Payer ID:[id number] Group ID:[id number] Type:Not on file Address: [place] [address] [address] [phone] Advance Directives Documents on File Type Date Recorded Patient Outpatient Receptionist Expl anation Advance Directives and Living Will 06/10/2024 10:53 AM Ailin Serra Health Care Proxy * Full Code - [...] Agents on File Name Relationship Healthcare Agent Relationshi p Communication Ailin Ga Daughter Health Care Agent Marleny Serra Relative First Alternate Health C are Agent Care Teams Clock Assembler Relationship Specialty Start Date End Date David Goldberg MD [address] [place] [address] PCP - General Internal Medicine 09/30/21
--- OUTSIDE RECORDS SUMMARY | 2024-11-28 10:28 | XMS_ITS | Encounter Summary ---
Author Organization [facility] Address [address] [place] [phone] Phone Care Team Providers Care Humanities Department Chair Name Role Phone David Holland MD Primary Care Provider Reason for Visit * Reason Onset Date Comments Lower Urinary Tract Symptoms (LUTS) 11/14/2024 Encounter Details Date Type Department Care Team ([facility] Contact Info) Description 11/14/2024 Telephone [facility] [address] [place] [address] [place] [address] Amy Rosenberg, RN [address] [place] [address] [email or web address] Lower Urinary Tract Symptoms (LUTS) Social History Tobacco Use Types Packs/Day Years [...] Answer Date Recorded No 08/26/2022 No 08/26/2022 Reliable internet access at home? Not on file 08/26/2022 Device with a working camera? Not on file Comments No Sex and Gender Information Value Date Recorded Sex Assigned at Not on file Legal Sex Female 2:01 PM EDT Gender Identity Not on file Sexual Orientation Not on file documented as of this encounter Progress Notes * Amy Rosenberg, CHETAN - 11/28/2024 8:17 AM EDT Images from the original note were not included. Mony Teresa MD [facility] Rn14 hours ago (5:52 PM) RP Suggest f/u visit, may benefit from vaginal estrogen Rx LMTCB * Ricky Theodore LPN - 11/20/2024 9:39 AM EDT Sw pt, who states that she is still having urinary frequency. Denies dysuria. Pt informed that I would send her message to Dr Teresa to review and advise. * Zuri Gaston LPN - 11/19/2024 1:16 PM EDT Urine culture final result show no growth. * Caroline Brown LPN - 11/18/2024 3:07 PM EDT Preliminary results no growth in 24 hrs. * Ricky Theodore LPN - 11/18/2024 11:46 AM EDT UC still in process * Ricky Theodore LPN - 11/17/2024 3:59 PM EDT UC in process * Ricky Theodore LPN - 11/17/2024 1:39 PM EDTAddended by: ALONDRA THEODORE on: 11/17/2024 01:39 PM Modules accepted: Orders * Ricky Theodore LPN - 11/17/2024 1:39 PM EDT Add on UC order placed. * Ricky Theodore LPN - 11/17/2024 1:11 PM EDT Please see final u/s results and advise if we should place an add on order for a urine culture as it did not reflux to a UC. * Ricky Theodore LPN - 11/17/2024 8:03 AM EDT U/A not yet in process. * Amy Rosenberg RN - 11/14/2024 2:00 PM EDT Patient called office stating is having urinary frequency, denies back or flank pain/fever/chills/other symptoms, order placed for UA per protocol, patient will go to lab on Sunday, advised with worsening symptoms can be seen in an UC over the weekend Hold for UA results documented in this encounter Plan of Treatment Not on file documented as of this encounter Procedures Procedure Name Priority Date/Time Associated Diagnosis Comments URINE CULTURE Routine 11/17/2024 8:10 AM EDT documented in this encounter Results * Urine Culture (11/17/2024 8:10 AM EDT) Special Requests None 11/17/2024 2:43 PM EDT [facility] Urine Culture NO GROWTH 48HRS 11/19/2024 8:25 AM EDT [facility] Urine 11/17/2024 8:10 AM EDT 11/17/2024 2:43 PM EDT us Mony Teresa MD MICROBIOLOGY - GENERAL ORDERABLE S Final Result Performing Organization Address [facility] Co de Phone Number [address] [address] * (ABNORMAL) Urinalysis w/reflex Urine Culture (11/17/2024 8:10 AM EDT) COLOR Yellow Yellow [facility] CLARITY Clear [facility] GLUCOSE Negative Negative [facility] BILI Negative Negative [facility] KETONES Negative Negative [facility] SPECIFIC GRAVITY <1.005 1.005 - 1.030 [facility] BLOOD Trace(A) Negative [facility] PH 6.0 5.0 - 8.0 [facility] Protein-UA Negative Negative [facility] NITRITE Negative Negative [facility] Leukocyte esterase, ur 1+(A) Negative [facility] Urine (Urine) 11/17/2024 8:1 0 AM EDT 11/17/2024 8:15 AM EDT us Mony Teresa MD URINE ORDERABLES Final Result Performing Organization Address City/[facility]/ZIP Co de Phone Number [address] [phone] documented in this encounter Visit Diagnoses Diagnosis Urinary frequency- Primary documented in this encounter Care Teams Humanities Department Chair Relationship Specialty Start Date End Date David Holland MD [address] [place] [address] PCP - General Internal Medicine 02/01/18 documented as of this encounter Additional Source Comments The information contained in this document represents components of the legal health record. It is not the complete legal health record.[facility]
--- OUTSIDE RECORDS SUMMARY | 2024-11-28 10:28 | XMS_ITS | Encounter Summary ---
Author Organization [facility] Address [address] [phone] Phone Care Team Providers Care It Systems Manager Name Role Phone David Holland MD Primary Care Provider [phone] Encounter Details Date Type Department Care Team (Late Contact Info) Description 11/24/2024 Orders Only [facility] [address] [phone] Sommer Khan ARNP [address] [address] Social History Tobacco Use Types [...] Office Visit [facility] [address] [phone] Sommer Khan ARNP [address] [phone] documented as of this encounter Visit Diagnoses Not on filedocumented in this encounter Care Teams It Systems Manager Relationship Specialty Start Date End Date David Holland MD [address] PCP - General Internal Medicine 10/16/22 documented as of this encounter
--- OUTSIDE RECORDS SUMMARY | 2024-11-28 10:28 | XMS_ITS | Encounter Summary ---
Author Organization [facility] Address [address] [address] Phone Care Team Providers Care Spring Setter Name Role Phone David Holland MD Primary Care Provider [phone] Reason for Visit * Reason Onset Date Comments Med Refill 11/24/2024 Encounter Details Date Type Department Care Team (Late st Contact Info) Description 11/24/2024 Refill [facility] [address] [phone] Stacie Stafford [address] [phone] Social History Tobacco Use Types [...] Office Visit [facility] [address] [phone] Sommer Khan ARNP [address] [phone] documented as of this encounter Visit Diagnoses Not on filedocumented in this encounter Care Teams Spring Setter Relationship Specialty Start Date End Date David Holland MD [address] PCP - General Internal Medicine 10/16/22 documented as of this encounter
--- OUTSIDE RECORDS SUMMARY | 2024-11-28 10:28 | XMS_ITS | Encounter Summary ---
Author Organization [facility] Address [address] [phone] Phone Care Team Providers Care Scientist Name Role Phone David Holland MD Primary Care Provider Encounter Details Date Type Department Care Team (Late Contact Info) Description 11/24/2024 Orders Only [facility] [address] [phone] Sommer Khan ARNP [address] [phone] Hypomagnesemia (Primary Dx) Social History Tobacco Use Types Packs/Day Years [...] EST Office Visit [facility] [address] [phone] Sommer Khan ARNP [address] [phone] documented as of this encounter Visit Diagnoses Diagnosis Hypomagnesemia- Primary documented in this encounter Care Teams Scientist Relationship Specialty Start Date End Date David Holland MD [address] PCP - General Internal Medicine 10/16/22 documented as of this encounter
--- OUTSIDE RECORDS SUMMARY | 2024-11-28 10:28 | XMS_ITS | Clinical Summary ---
Author Organization [facility] Address [address] [place] [address] Care Team Providers Care Garment Turner Name Role Phone Unavailable Primary Care Provider [...] Description 11/03/2024 11:00 AM EDT Office Visit [place] [address] [place] [address] Lisha Rivas from Last 3 [...] (adult) (1 - 1-dose 75+ series) 2013 [id number] ( - 2023- season) 2023 Alcohol and [...] AM EDT from Last 3 Months Insurance [facility]
--- OUTSIDE RECORDS SUMMARY | 2024-11-28 10:28 | XMS_ITS | Encounter Summary ---
Author Organization [facility] Address [address] [place] [phone] Phone Care Team Providers Care Cellar Supervisor Name Role Phone David Holland MD Primary Care Provider [phone] Encounter Details Date Type Department Care Team (Late st Contact Info) Description 11/24/2024 Office Communication [facility] [address] [place] [phone] Criss Orellana [address] [place] [address] Social History Tobacco Use Types Packs/Day Years [...] on file documented as of this encounter Miscellaneous Notes * Telephone Encounter - Stacie Stafford - 11/24/2024 4:02 PM EDT Pt called back and message was given below by Amanda * Telephone Encounter - Stacie Stafford - 11/24/2024 3:57 PM EDT Left voicemail to call regarding message below. * Telephone Encounter - Criss Orellana - 11/24/2024 11:40 AM EDT PT says that she needs a refill of [facility]..States that Lori prescribed it, but I can't see that. Can you send refill to [facility]?. TY documented in this encounter Plan of Treatment Upcoming Encounters Date Type Department Care Team (Late st Contact Info) Description 02/18/2025 10:30 AM EST [facility] [address] [phone] Sommer Khan ARNP [address] [address] documented as of this encounter Visit Diagnoses Not on filedocumented in this encounter Care Teams Cellar Supervisor Relationship Specialty Start Date End Date David Holland MD [address] PCP - General Internal Medicine 10/16/22 documented as of this encounter
--- OUTSIDE RECORDS SUMMARY | 2024-11-28 10:28 | XMS_ITS | Clinical Summary ---
Author Organization [facility] Address [address] [place] [id number] Phone Care Team Providers Care Drop Forge Operator Name Role Phone David Holland MD Primary Care Provider Allergies Active Allergy Reactions Criticality Noted Date Comments Ciprofloxacin Hives Medications ascorbic acid, vitamin C, (VITAMIN C) 500 MG tablet Take 1,000 mg by mouth daily. Active magnesium 250 mg Tab Take 500 mg by mouth. Active pravastatin (PRAVACHOL) 40 MG tablet Take 40 mg by mouth daily. Active lisinopril (PRINIVIL,ZESTRI L) 10 MG tablet Take 10 mg by [...] AND U 2 SPRAYS IEN QD Active acetaminophen-co deine (TYLENOL #3) 300-30 mg per tablet acetaminophen [...] mouth 2 (two) times a day. Active omeprazole (PRILOSEC) 20 MG capsule omeprazole 20 mg capsule,delayed release Active amitriptyline (ELAVIL) 50 MG tablet amitriptyline 50 mg tablet TAKE 1 TABLET BY MOUTH EVERY DAY AT BEDTIME Active baclofen (LIORESAL) 10 MG tablet Take 10 mg by mouth as needed. Active hydrocortisone 1 % ointmentIndicati ons:Boil, breast Apply small amount to affected area bid as needed itching. 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 For 3days - outbreak 18 tablet 1 Active Additional Information Patient not taking.Reported on 11/12/2024 triamcinolone acetonide 0.025 % cream Apply topically daily as needed. For itch 30 g Active triamcinolone acetonide 0.1 % ointmentIndicati ons:Acute vulvitis Apply topically 2 (two) times a day. Mix with the nystatin, up to 4 weeks 30 g Active nystatin ointment Apply topically 2 (two) times a day. Mix with the triamcinilone, up to 4 weeks 30 g Active multivitamins Chew Take by mouth daily. 2024 Discontinued nystatin (MYCOSTATIN) 100,000 units/mL suspension nystatin 100,000 unit/mL oral suspension SHAKE LIQUID AND TAKE 5 ML BY MOUTH FOUR TIMES DAILY FOR 10 DAYS 2024 Discontinued Active Problems Problem Noted Date Diagnosed Date Acute vulvitis 11/12/2024 Overview (11/12/2024): X 1 week, outer right l. Majorum Irritation non-specific, possibly eczema Assessment & Plan (11/12/2024 8:55 AM EDT): Combine nystating-triam BID up to 4 weeks, RTO in 4 weeks (though if all resolved, f/u not needed Urinary problem 10/23/2018 Overview (10/23/2018): Pain and discomfort with urination since cystocele and bladder suspension done in 2016. Assessment & Plan (10/23/2018 3:31 PM EDT): [...] pain with actual urination. At one point uro-resin painter that performed her surgery had her on [...] 10mg oxybutynin. Plan for 5mg daily dosing. Resolved Problems Problem Noted Date Diagnosed Date [...] Has done well with oil of evening [place]. 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 Will call for refills as needed. Encounters Date Type Department Care Team Description 11/22/2024 Refill [facility] [address] [place] [address] Mony Teresa MD Medication Refill 11/17/2024 7:33 AM EDT - 11/17/2024 11:59 PM EDT Hospital Encounter [facility] [address] [place] [address] Mony Teresa MD Discharge Disposition: Home or Self Care 11/14/2024 Telephone [facility] [address] [place] [address] [place] [id number] Amy Rosenberg RN Lower Urinary Tract Symptoms (LUTS) 11/12/2024 8:20 AM EDT Office Visit [facility] [address] [place] [address] Mony Teresa MD Acute vulvitis (Primary Dx) from Last 3 Months Immunizations Immunization Administration Dates Next Due INFLUENZA, [...] Sign Reading Time Taken Comments Blood Pressure 110/72 11/12/2024 8:35 AM EDT Pulse - - Temperature - - Respiratory Rate - - Oxygen Saturation - - Inhaled Oxygen Concentration - - Weight 93.9 kg (207 lb) 11/12/2024 8:35 AM EDT Height 170.2 cm (5' 7 ) 01/25/2022 11:12 AM EDT Body Mass Index 32.42 01/25/2022 11:12 AM EDT Plan of Treatment Health Maintenance Due Date Last Done Comments Adult Td,Tdap Booster 1938 CREATININE LEVEL 1938 POTASSIUM LEVEL 1938 DEPRESSION SCREENING 1950 ZOSTER VACCINES (1 of 2) 1988 OSTEOPOROSIS SCREENING INITI AL (ONE-TIME) 07/15/2003 RSV VACCINE (1 - 1-dose 75+ series) 2013 PNEUMOCOCCAL VACCINES (50+ years) (2 of 2 - PCV) 01/11/2022 01/11/2021 COVID-19 VACCINE ( - 2023-2 5 season) 2023 INFLUENZA VACCINE (#1) 2024 5, 12/23/2013 HEPATITIS A VACCINES Aged Out No long [...] this topic Medical Devices Not on file Procedures Procedure Name Priority Date/Time Associated Diagnosis Comments URINE SEDIMENT Routine 11/17/2024 8:10 AM EDT URINALYSIS W/REFLEX URINE CULTURE Routine 11/17/2024 8:10 AM EDT Urinary frequency URINE CULTURE Routine 11/17/2024 8:10 AM EDT from Last 3 Months Results * (ABNORMAL) Urinalysis w/reflex Urine Culture (11/17/2024 8:10 AM EDT) COLOR Yellow Yellow [facility] CLARITY Clear [facility] GLUCOSE Negative Negative [facility] BILI Negative Negative [facility] KETONES Negative Negative [facility] SPECIFIC GRAVITY <1.005 1.005 - 1.030 [facility] BLOOD Trace(A) Negative [facility] PH 6.0 5.0 - 8.0 [facility] Protein-UA Negative Negative [facility] NITRITE Negative Negative [facility] Leukocyte esterase, ur 1+(A) Negative [facility] Urine (Urine) 11/17/2024 8:1 0 AM EDT 11/17/2024 8:15 AM EDT Mony Teresa MD URINE ORDERABLES Final Result Performing Organization Address [facility] [place]/ZIP Co de Phone Number [address] [phone] * Urine Culture (11/17/2024 8:10 AM EDT) Special Requests None 11/17/2024 2:43 PM EDT [facility] Urine Culture NO GROWTH 48HRS 11/19/2024 8:25 AM EDT [facility] Urine 11/17/2024 8:10 AM EDT 11/17/2024 2:43 PM EDT us Mony Teresa MD MICROBIOLOGY - GENERAL ORDERABLE S Final Result Performing Organization Address City/[facility] [place]/ZIP Co de Phone Number [address] [phone] * (ABNORMAL) Urine sediment (11/17/2024 8:10 AM EDT) WBC 0-4(A) NONE SEEN /hpf [facility] RBC 0-2(A) NONE SEEN /hpf [facility] URINE EPITHELIAL 0-4(A) NONE SEEN [facility] MUCUS NONE SEEN NONE SEEN /hpf [facility] BACTERIA Trace(A) NONE SEEN /hpf [facility] 11/17/2024 8:10 AM EDT 11/17/2024 8:15 AM EDT us Mony Teresa MD URINE ORDERABLES Final Result [address] [id number] from Last 3 Months Insurance MEDICARE PART A & B [address] [place], [place] [id number] [facility] MEDIC[facility] A & [facility] RE[facility] MED[facility] PART A & B [facility] MEDICARE [facility]PLACEMENT MEDICARE PART A & B [facility] MEDICARE REPLACEMENT MEDICARE PART A & B [facility] MEDICARE REPLACEMENT MEDICARE PART A & B [facility] MEDICARE REPLACEMENT MEDICARE PART A & B [facility] MEDICARE REPLACEMENT MEDICARE PART A & [place] [address] [place] [id number] MEDICARE REPLACEMENT MEDICARE PART A & B [facility] MEDICARE REPLACEMENT Care Teams Drop Forge Operator Relationship Specialty Start Date End Date Holland, David Sergo, MD [address] [place] [address] PCP - General Internal Medicine 02/01/18 Additional Source Comments The information contained in this document represents components of the legal health record. It is not the complete legal health record.[facility]
--- OUTSIDE RECORDS SUMMARY | 2024-11-28 10:28 | XMS_ITS | Encounter Summary ---
Author Organization [facility] Address [address] [place] [address] [place] [phone] Phone Care Team Providers Care Drycleaner Name Role Phone David Holland MD Primary Care Provider Reason for Visit * Reason Comments Medication Refill Encounter Details Date Type Department Care Team (Late st Contact Info) Description 11/22/2024 Refill [facility] [address] [place] [address] Mony Teresa MD [address] [facility], [address] [place] [phone] [email or web address] Medication Refill Social History Tobacco Use Types Packs/Day Years [...] as of this encounter Progress Notes * Mony Teresa MD - 11/24/2024 6:26 PM EDT Rx was sent only a week ago * Velvet Lundberg MA - 11/24/2024 11:21 AM EDT Rx Care Gap Status - Instructions for Clinical Staff (prescriber discretion applies): > Mismatch review guide > No future appt: Please schedule if appropriate. Visit Info Last visit: 11/12/2024 Mony Teresa MD - Obstetrics and Gynecology [facility] [place] > Requested f/u: Not specified Upcoming visit: None ACTIONS TAKEN BY Velvet Lundberg MA - Criteria met. Topical / Dermatology Rx Protocol - triamcinolone acetonide Criteria met; renew for up to 12 months. Visit in the past 14 months: Yes documented in this encounter Plan of Treatment Not on file documented as of this encounter Visit Diagnoses Diagnosis Acute vulvitis Unspecified vaginitis and vulvovaginitis documented in this encounter Care Teams Drycleaner Relationship Specialty Start Date End Date David Holland MD [address] [place] [id number] PCP - General Internal Medicine 02/01/18 documented as of this encounter Additional Source Comments The information contained in this document represents components of the legal health record. It is not the complete legal health record.[facility]
== END 2024-11-28 10:44 | disposition home or self-care (01) ==
LOC: HO.PMC 09:44
PROVIDERS: PCP Internal Medicine; Visit Provider Internal Medicine
DX: M54.50 Low back pain, unspecified (principal); M79.604 Pain in right leg; M79.605 Pain in left leg; M25.562 Pain in left knee
CPT/HCPCS: 99204

== ENCOUNTER → 2024-11-28 09:44 | Outpatient (BNVA) | payer OTHER, SELFPAY | PROVIDERS: PCP Internal Medicine; Visit Provider Internal Medicine | DX: M54.50 Low back pain, unspecified (principal); M79.604 Pain in right leg; M79.605 Pain in left leg; M25.562 Pain in left knee; M48.061 Spinal stenosis, lumbar region without neurogenic claudication; M96.1 Postlaminectomy syndrome, not elsewhere classified | CPT/HCPCS: 99202 ==